=== PATIENT | female | born 2005 | race Caucasian/White ===

== ENCOUNTER 2023-01-30 09:19 | Day surgery (SDC) | payer OTHER ==
[~2023-01-30] VITALS: Ht 162.6 cm; Wt 43.9 kg
[~2023-01-30 09:19] MED LIST: FAMO1TAB11 PO; LORY1TAB2 PO; NS 1,000 ML IV ONE
[2023-01-30] MEDS ORDERED: LIDOCAINE 2% 100MG/5ML SDV (FOR ANES.) As Ordered ONE (09:43)
[2023-01-30] MEDS ORDERED: propofoL 500 MG/50 ML VIAL As Ordered ONE (09:43)
[2023-01-30] MEDS ORDERED: fentaNYL 100 MCG/2 ML INJECTION As Ordered ONE (09:43)
[2023-01-30] MEDS ORDERED: ePHEDrine SULFATE 25 MG/5 ML(5MG/ML) SYRINGE As Ordered ONE (11:24)
[2023-01-30 11:30] VITALS: TEMP 97.8
[2023-01-30 12:00] VITALS: BP 109/55; O2SAT 100
== END 2023-01-30 12:04 | disposition home or self-care (01) ==
LOC: M OPP 09:19
PROVIDERS: ATTEND Internal Medicine Gastroenterology
DX: K58.1 Irritable bowel syndrome with constipation (principal); K64.8 Other hemorrhoids; R63.4 Abnormal weight loss; R12 Heartburn; Z87.891 Personal history of nicotine dependence; Z79.3 Long term (current) use of hormonal contraceptives; Z79.899 Other long term (current) drug therapy
CPT/HCPCS: 43235; 45378; J3010